=== PATIENT | female | born 1995 | race Two or more races ===

== ENCOUNTER 2025-02-15 19:33 | Emergency (ER) | payer SELFPAY ==
[2025-02-15 19:56] VITALS: BP 128/74; PULSE 91; RESP 16; TEMP 36.9; O2SAT 100
--- NOTE | 2025-02-15 21:05 | PC.NURSE ---
Pt has taken azitrhomycin for 7 days and then started clincamycin on thursday TID
--- NOTE | 2025-02-15 23:08 | ED.DENTAL ---
HPI - Dental/Oral General Chief complaint: Dental/Oral Stated complaint: tooth pain Time Seen by Provider: 02/15/25 21:22 History of Present Illness HPI Narrative: Patient is a 29-year-old [place] female who presents to the ER with right lower jaw pain. She reports she was experiencing pain so she went to an [facility] who reports she is going to have to have a repeat root canal. Patient reports [facility] put her on clindamycin but her symptoms have worsened. She endorses significant pain underneath her jaw, and on the right inner part of her mouth. Patient denies any difficulty swallowing, sore throat, recent fevers, mastoid tenderness or congestion. She denies any other medical history relevant to this ER visit. Related Data Allergies Allergy/AdvReac Type Severity Reaction Status Date / Time clindamycin Allergy Intermediate Swelling Verified 02/16/25 00:04 Review of Systems Review of Systems: All systems reviewed & are unremarkable except as noted in HPI and below Exam Narrative: GENERAL: Well appearing, well-nourished, non-toxic, in mild distress due to pain. HEAD: Normocephalic, atraumatic. NECK: Supple. + cervical lymphadenopathy right-sided, small palpable abscess below tooth number 30 RESPIRATORY: Airway patent, respirations nonlabored. Clear to auscultation bilaterally, no rales, rhonchi, wheezing. CARDIOVASCULAR: Regular rate and rhythm without murmurs, rubs, or gallops. Peripheral pulses 2+ and equal bilaterally. ABDOMINAL: Soft, nontender, nondistended, no hepatosplenomegaly. Normoactive BS. MUSCULOSKELETAL: Moves all extremities. Strength/ROM intact without gross deformities. SKIN: Warm, dry, normal color. No rashes. NEURO: A&O X3. Speech clear. Cranial nerves II-XII intact. No ataxic movements. PSYCHIATRIC: Appropriate mood and affect. Normal interaction. Course Vital Signs Vital signs: Vital Signs Temperature 36.9 C 02/15/25 19:56 Pulse Rate 91 02/15/25 19:56 Respiratory Rate 16 02/15/25 19:56 Blood Pressure 128/74 02/15/25 19:56 Pulse Oximetry 100 02/15/25 19:56 Oxygen Delivery Room Air 02/15/25 19:56 Temperature 36.9 C 02/15/25 19:56 Pulse Rate 91 02/15/25 19:56 Respiratory Rate 16 11/19/25 19:56 Blood Pressure 128/74 02/15/25 19:56 Pulse Oximetry 100 02/15/25 19:56 Oxygen Delivery Room Air 02/15/25 19:56 MDM - Dental/Oral MDM Narrative Medical decision making narrative: Patient is a 29-year-old [place] female who presents to the ER with right lower jaw pain. She reports she was experiencing pain so she went to an [facility] who reports she is going to have to have a repeat root canal. Patient reports [facility] put her on clindamycin but her symptoms have worsened. She endorses significant pain underneath her jaw, and on the right inner part of her mouth. Patient denies any difficulty swallowing, sore throat, recent fevers, mastoid tenderness or congestion. She denies any other medical history relevant to this ER visit. Patient Education/Shared MDM: Pt's oral antibiotic will be changed and she will be given her first dose here in the ER. She endorses improvement of symptoms following medication administration. Patient strongly advised to maintain hydration status upon discharge and follow-up with her [facility] or dentist as soon as possible. She will be discharged home with a prescription for viscous lidocaine and Augmentin. Pt advised to take Tylenol and/or Ibuprofen for pain control. Strict return precautions provided. Patient verbalized understanding and is in agreement with plan. Vital signs stable at time of discharge. All questions answered. Differential Diagnosis Differential diagnosis: Likely gingival abscess, dental caries, toothache, dental abscess and fracture of tooth Discharge Plan Discharge Clinical Impression: Toothache, Dental abscess Patient Disposition: Home Condition: Stable Instructions: Antibiotic Form, Dental Abscess (ED) Additional Instructions: Please return to the ER with any worsening symptoms. Follow-up with your [facility] as soon as possible. Take all medications as prescribed, including regularly scheduled medications. You may take Tylenol and/or Ibuprofen for pain control. Please complete your full dose of antibiotics. Patient Language: [place] Citizen Prescriptions: New amoxicillin-pot clavulanate 875-125 mg tablet 1 tablet PO Q12H 10 Days Qty: 20 0RF lidocaine HCl [Lidocaine Viscous] 2 % solution 1 applic mucous membrane QID PRN (Reason: pain) Qty: 300 0RF Follow-up/Referrals: Gordo Lim MD [Physician, Family Practice] Referral Note: primary care provider UNKNOWN,DOCTOR [Primary Care Provider] Stand Alone Forms: Work/School Release IP Time of Disposition: 00:04
[2025-02-16] MEDS: HYDROcodone/acetaminophen (*CRX) 5-325 MG TABLET 1 TAB PO (00:09)
[2025-02-16] MEDS: LIDOCAINE 2% VISC SOLN 15 ML UDC PO (00:09)
[2025-02-16] MEDS: KETOROLAC (*BKC) 60 MG/2 ML VIAL IM (00:10)
[2025-02-16 00:34] VITALS: PULSE 75; RESP 18; O2SAT 100
--- OUTSIDE RECORDS SUMMARY | 2025-02-16 01:47 | XMS_ITS ---
Author Organization Unknown ENCOUNTERS Encounter Performer Location Date Diagnosis Diagnosis Status Pre Admit [facility] [id number] [place] [address] [id number] Emergency [facility] [address] [place] [address] [id number] DEE DEE *Note: Encounters from your own facility or health system may be excluded. Allergies, Adverse Reactions, Alerts Allergen Type Severity Identification Date clindamycin drug allergy 3 [id number] Medications Name Date Quantity Days Supplied GPI Number
== END 2025-02-16 00:35 | disposition home or self-care (01) ==
PROVIDERS: Emergency Provider Registered Nurse
DX: K04.7 Periapical abscess without sinus (principal)
CPT/HCPCS: 96372; 99283; A9270; J1885